=== PATIENT | female | born 1990 | race Caucasian/White ===

== ENCOUNTER 2017-02-18 13:06 | Emergency (ER) | payer OTHER ==
[2017-02-18 13:27] VITALS: BP 130/79; PULSE 105; TEMP 97.9; BMI 29.2
--- NOTE | 2017-02-18 13:32 | PDOC ---
History of Present Illness - General Chief Complaint: Sore Throat Stated Complaint: SORE THROAT Time Seen by Provider: 02/18/17 13:28 History Source: Patient Exam Limitations: Language Barrier (Intepreter #[id number] rylan) - History of Present Illness Initial Comments: CHIEF COMPLAINT: 26 y/o afebrile female with no significant PMH c/o sore throat since september (approximately 6 months ago). HISTORY OF PRESENT ILLNESS: The patient states it feels like something is stuck in her throat. She denies f/c, n/v/d, difficulty swallowing, and all other symptoms. She did not take any medications for her symptoms. Vital signs on arrival are notable for pulse of 105. REVIEW OF SYSTEMS: GENERAL/CONSTITUTIONAL: No fever/chills. No weakness. No weight change. HEAD, EYES, EARS, NOSE AND THROAT: No change in vision. No ear pain or discharge. +sore throat and foreign body sensation. CARDIOVASCULAR: No chest pain or shortness of breath. RESPIRATORY: No cough, wheezing, or hemoptysis. GASTROINTESTINAL: No abd pain, nausea, vomiting,diarrhea. GENITOURINARY: No dysuria, frequency, or change in urination. MUSCULOSKELETAL: No joint or muscle swelling or pain. No neck or back pain. SKIN: No rash or easy bruising. NEUROLOGIC: No headache, vertigo, loss of consciousness, or loss of sensation. PHYSICAL EXAM: GENERAL: The patient is awake, alert, and fully oriented, in no acute distress. She is well appearing, ambulatory, in NAD or obvious discomfort. HEAD: Normal with no signs of trauma. ENT: Pupils equal, round and reactive to light, extraocular movements intact, sclera anicteric, conjunctiva clear. Neck supple. No tonsilar erythema, edema or exudate. Airway patent. Normal swallow. LUNGS: Clear to auscultation bilaterally. Normal excursion. No respiratory distress or use of accessory muscles. CV: RRR, S1/S2, no MRG. Cap refill < 2 sec. ABDOMEN: Soft, non-distended, non-tender even to deep palpation, no hepatomegaly or splenomegaly, no masses. EXTREMITIES: Normal range of motion, no edema. NEUROLOGICAL: Normal speech, normal gait. CN II-XII grossly intact. PSYCH: Normal mood, normal affect. SKIN: Warm, dry, normal turgor, no rashes or lesions noted. Past History - Past Medical History Allergies/Adverse Reactions: Allergies Allergy/AdvReac Type Severity Reaction Status Date / Time No Known Allergies Allergy Verified 02/18/17 13:24 Home Medications: Ambulatory Orders No Home Medications 0 dose .ROUTE UTDICT 12/21/13 Asthma: No Cancer: No Cardiac Disorders: No Diabetes: No HTN: No Seizures: No Thyroid Disease: No Other medical history: DENIES. - Psycho/Social/Smoking Cessation Hx Suicidal Ideation: No Smoking History: Never smoked Have you smoked in the past 12 months: No Hx Alcohol Use: No Drug/Substance Use Hx: No Hx Substance Use Treatment: No *Physical Exam - Vital Signs Last Vital Signs Temp Pulse Resp BP Pulse Ox 97.9 F 105 H 19 130/79 96 02/18/17 13:24 02/18/17 13:24 02/18/17 13:24 02/18/17 13:24 02/18/17 13:24 Medical Decision Making - Medical Decision Making A/P: 26 y/o afebrile female with sore throat and foreign body sensation x 6 months. Instructed the patient she should follow up with ENT, Dr. Kaufman, to have endoscopy performed. In the meantime, suggested she take Motrin for pain and inflammation and gargle with warm salt water. Instructed her to return to the ER with any worsening or concerning symptoms. The patient verbalizes understanding of all instructions, has no further questions and is awaiting discharge. *DC/Admit/Observation/Transfer Diagnosis at time of Disposition: Sore throat, Foreign body sensation in throat - Discharge Dispostion Disposition: HOME Condition at time of disposition: Good - Referrals Referrals: Boone Kaufman MD [Staff Physician] - Call tomorrow - Patient Instructions Printed Discharge Instructions: Sore Throat Additional Instructions: Discharge Instructions: -Take Motrin for pain -Gargle with warm salt water -Call Dr. Kaufman tomorrow to schedule follow up appointment Print Language: SLOVAK
== END 2017-02-18 13:54 | disposition home or self-care (01) ==
LOC: JERFT 13:06
DX: R07.0 Pain in throat (principal); R09.89 Other specified symptoms and signs involving the circulatory and respiratory systems
CPT/HCPCS: 99281-25

== ENCOUNTER → 2018-10-21 | Emergency (ER) | payer OTHER ==
[~2018-10-21] MED LIST: KETOROLAC TROMETHAMINE 30 MG/1 ML VIAL IVPUSH ONE; KETOROLAC TROMETHAMINE 30 MG/1 ML VIAL ONE
[2018-10-21 12:33] VITALS: BP 121/55; PULSE 77; TEMP 98; BMI 31.4
--- NOTE | 2018-10-21 14:29 | PDOC ---
History of Present Illness - General Chief Complaint: Pain Stated Complaint: BREAST PAIN Time Seen by Provider: 10/21/18 12:54 History Source: Patient - History of Present Illness Timing/Duration: other Associated Symptoms: denies: fever/chills, malaise Past History - Past Medical History Allergies/Adverse Reactions: Allergies Allergy/AdvReac Type Severity Reaction Status Date / Time No Known Allergies Allergy Verified 10/21/18 12:30 Home Medications: Ambulatory Orders No Home Medications 0 dose .ROUTE UTDICT 12/21/13 Asthma: No Cancer: No Cardiac Disorders: No COPD: No Diabetes: No HTN: No Seizures: No Thyroid Disease: No - Suicide/Smoking/Psychosocial Hx Smoking History: Never smoked Have you smoked in the past 12 months: No Information on smoking cessation initiated: No Hx Alcohol Use: No Drug/Substance Use Hx: No Hx Substance Use Treatment: No Review of Systems - Review of Systems Constitutional: No: Chills, Fever, Malaise, Unexplained wgt Loss *Physical Exam - Vital Signs Last Vital Signs Temp Pulse Resp BP Pulse Ox 98 F 77 16 121/55 L 100 10/21/18 12:31 10/21/18 12:31 10/21/18 12:31 10/21/18 12:31 10/21/18 12:31 - Physical Exam General Appearance: Yes: Appropriately Dressed. No: Apparent Distress HEENT: positive: Normal Voice Neck: positive: Supple Respiratory/Chest: positive: Other (~4x4cm hard,fixed,tender mass to medial R breast, no overlying erythema or nipple changes or discharge, breasts symmetric with no axillary or cervical lymphadenopathy). negative: Respiratory Distress Integumentary: positive: Dry, Warm Neurologic: positive: Fully Oriented, Alert, Normal Mood/Affect Moderate Sedation - Procedure Monitoring Vital Signs: Procedure Monitoring Vital Signs Temperature 98 F 10/21/18 12:31 Pulse Rate 77 10/21/18 12:31 Respiratory Rate 16 10/21/18 12:31 Blood Pressure 121/55 L 10/21/18 12:31 O2 Sat by Pulse Oximetry (%) 100 10/21/18 12:31 ED Treatment Course - LABORATORY CBC & Chemistry Diagram: 10/21/18 15:30 10/21/18 15:30 Medical Decision Making - Medical Decision Making 10/21/18 14:24 27 yo F, no sig hx, here w/ persistent pain to right breast and over the past several days has felt a mass. No fever or chills. No personal history of breast disease and no family history of breast cancer. No unexplained weight loss see exam R/o breast abscess Pain control -labs -US 10/21/18 15:51 US read as a 5.8 cm band of increased echogenicity which may be infectious versus mass/tumor. Will discuss case with general surgery 10/21/18 16:[address] García who states he can see patient in the office tomorrow. ED scribe contacted staff in office who will contact patient at mobile number on record to arrange appointment. This was discussed with patient who was informed of how important it is for her to follow-up and get possible biopsy to rule out malignancy. *DC/Admit/Observation/Transfer Diagnosis at time of Disposition: Breast mass, right - Discharge Dispostion Disposition: HOME - Referrals - Patient Instructions Printed Discharge Instructions: DI for Breast Mass -- Uncertain Cause Additional Instructions: Hurtado ecografa de hoy mostr yesi masa de 5,6 cm. No est rosio hoy si hay yesi infeccin o un tumor. Es muy importante que elieser un seguimiento con el Dr. García de la ciruga general para un tratamiento adicional con yesi posible biopsia de la masa. Hemos discutido el zayra con el Dr. García y hurtado personal se comunicar con usted hoy al nmero registrado para concertar yesi ki para maana. Mientras tanto, jerri Li segn sea necesario para el dolor. Print Language: SURINAMESE - Post Discharge Activity Forms/Work/School Notes: Back to Work
[2018-10-21 15:59] LABS: BASO % 0.4 % (0-2.0); EOS % 1.9 % (0-4.5); HEMATOCRIT 37.2 % (32.4-45.2); HEMOGLOBIN 13.1 GM/dL (10.7-15.3); LYMPH % 25.7 % (8-40); MCH 31.6 pg (25.7-33.7); MCHC 35.2 g/dl (32.0-36.0); MEAN CELL VOLUME 89.8 fl (80-96); MEAN PLT VOLUME 7.8 fl (7.5-11.1); MONO % 5.1 % (3.8-10.2); NEUT % 66.9 % (42.8-82.8); PLATELET COUNT 283 K/MM3 (134-434); RBC 4.14 M/mm3 (3.60-5.2); RDW 12.6 % (11.6-15.6)
[2018-10-21 16:23] LABS: ALBUMIN 3.6 g/dl (3.4-5.0); ALK PHOS 132 U/L (45-117); ANION GAP 6 MMOL/L (8-16); BILIRUBIN,TOTAL 0.4 mg/dL (0.2-1); BLOOD UREA NITROGEN 10 mg/dL (7-18); CALCIUM 8.6 mg/dL (8.5-10.1); CHLORIDE 107 mmol/L (98-107); CO2 27 mmol/L (21-32); CREATININE 0.5 mg/dL (0.55-1.3); GLUCOSE,RANDOM 98 mg/dL (74-106); POTASSIUM 3.7 mmol/L (3.5-5.1); SGOT/AST 12 U/L (15-37); SGPT/ALT 26 U/L (13-61); SODIUM 139 mmol/L (136-145); TOT PROT 7.4 g/dl (6.4-8.2)
[2018-10-21 17:50] LABS: URINE APPEARANCE CLEAR; URINE BILIRUBIN NEGATIVE (<2.0 mg/dL); URINE COLOR YELLOW; URINE GLUCOSE (UA) NEGATIVE (NEGATIVE); URINE KETONE NEGATIVE (NEGATIVE); URINE LEUK ESTERASE NEGATIVE (NEGATIVE); URINE NITRITE NEGATIVE (NEGATIVE); URINE PROTEIN NEGATIVE (NEGATIVE); URINE UROBILINOGEN NEGATIVE mg/dL (0.2-1.0)
[2018-10-21 17:52] LABS: HCG,QUALITATIVE URINE Negative
== END | disposition home or self-care (01) ==
LOC: JER 12:07 → JERFT 12:07
PROC: 3E0333Z Introduction of Anti-inflammatory into Peripheral Vein, Percutaneous Approach (ICD-10-PCS; principal; 2018-10-21)
DX: N63.10 Unspecified lump in the right breast, unspecified quadrant (principal)
CPT/HCPCS: 36415; 76641-TC-RT; 80053; 81003; 84703; 85025; 96374; 99281-25

== ENCOUNTER → 2018-11-15 | Day surgery (SDC) | payer OTHER ==
--- NOTE | 2018-11-22 10:28 | PATH ---
Surgical Pathology Report Patient Name: TIFFANY BEE [facility]. Rec. #: [id number] /Age/Gender: 1990 (Age: 27) / F Account: [id number] Location: [place] [facility] Taken: 11/15/2018 Received: 11/15/2018 Reported: 11/22/2018 Physicians: MD Semaj Hutton M.D. Specimen(s) Received RIGHT BREAST 3:00 4FN CORE BX Clinical History Ultrasound findings: Suspicious Final Diagnosis Breast, right, 3:00, 4 cm fn, core biopsy: CYSTIC NEUTROPHILIC granulomatous mastitis. (See note). Note: The tissue cores are comprised of breast tissue showing lobulocentric granulomatous inflammation with mixed inflammatory infiltrate and microcystic foci within granulomas lined by/filled with neutrophils, with formation of small microabscesses. Gram stain (performed at [place], [place] : [id number]) demonstrates the presence of gram-positive bacilli/rods in association with the neutrophilic microabscesses. Cystic neutrophilic granulomatous mastitis is a rare inflammatory breast disease, affecting parous women of reproductive age, with growing evidence of association with corynebacterium (gram-positive bacilli) infection. Microbial culture may be useful in this setting, if clinically indicated. Myoepithelial immunohistochemical markers (SMM-HC and p63, performed at [facility]) demonstrate the presence of myoepithelial cells in the lesion. GMS and AFB stains (performed at [facility]) are negative for fungi and acid fast bacilli, respectively. Case discussed with Dr. Wicho García on 11/22/18. Electronically Signed Yvette Brock M.D. Gross Description Received in formalin labeled "right breast biopsy 3:00, 4 cmfn," is a 2.0 x 1.5 x 0.3 cm aggregate of multiple crow-yellow, irregular to cylindrical portions of fibroadipose tissue admixed with blood clot. The formalin is filtered and the specimen is entirely submitted in one cassette. Time to formalin fixation: 2 minutes Total formalin fixation time: Approximately 6 hours. /11/15/2018 saudi11/15/2018
== END | disposition home or self-care (01) ==
LOC: FRADUS-SUR 10:18
PROVIDERS: ATTEND Surgery
PROC: 0HBT3ZX Excision of Right Breast, Percutaneous Approach, Diagnostic (ICD-10-PCS; principal; 2018-11-15)
DX: N60.11 Diffuse cystic mastopathy of right breast (principal); N63.10 Unspecified lump in the right breast, unspecified quadrant
CPT/HCPCS: 19083; 87899; 88305-TC; 88312-TC; 88341-TC; 88342-TC; A4648

== ENCOUNTER 2018-12-09 08:03 | Inpatient (IN) | payer OTHER ==
--- NOTE | 2018-12-09 08:59 | PDOC ---
History of Present Illness - General Stated Complaint: BREAST SURGERY History Source: Patient Exam Limitations: No Limitations - History of Present Illness Initial Comments: 12/09/18 08:49 27 yo female no sig pmh, recent core biopsy right breast positive for cystic neutrophilic granulomatosis mastitis presents to the ED by the direction of Dr. García for removal of breast mass today. Pt has medicaid and requires ER visit prior to admission for surgery. Pt NPO for 12 hours. No current complaints Past History - Past Medical History Allergies/Adverse Reactions: Allergies Allergy/AdvReac Type Severity Reaction Status Date / Time No Known Allergies Allergy Verified 12/09/18 08:40 Home Medications: Ambulatory Orders No Home Medications 0 dose .ROUTE UTDICT 12/21/13 Asthma: No Cancer: No Cardiac Disorders: No COPD: No Diabetes: No HTN: No Seizures: No Thyroid Disease: No - Suicide/Smoking/Psychosocial Hx Smoking History: Never smoked Have you smoked in the past 12 months: No Information on smoking cessation initiated: No Hx Alcohol Use: No Drug/Substance Use Hx: No Hx Substance Use Treatment: No Review of Systems - Review of Systems Constitutional: No: Chills, Fever Respiratory: No: Shortness of Breath Cardiac (ROS): No: Chest Pain ABD/GI: No: Nausea, Vomiting Musculoskeletal: No: Back Pain Integumentary: Yes: Other (right breast mass with pain. No drainage) *Physical Exam - Vital Signs Last Vital Signs Temp Pulse Resp BP Pulse Ox 97.6 F 66 16 116/54 L 100 12/09/18 08:34 12/09/18 08:34 12/09/18 08:34 12/09/18 08:34 12/09/18 08:34 - Physical Exam General Appearance: Yes: Nourished, Appropriately Dressed. No: Apparent Distress HEENT: positive: EOMI Respiratory/Chest: positive: Lungs Clear Cardiovascular: positive: Regular Rhythm, Regular Rate Vascular Pulses: Dorsalis-Pedis (R): 4+, Doralis-Pedis (L): 4+ Gastrointestinal/Abdominal: positive: Flat, Soft. negative: Pulsatile Mass, Tenderness Integumentary: positive: Normal Color, Dry, Warm, Other (right breast cystic mass palpable with pain, no drainage from nipple or visible breast abnormality when compaired bilaterally) Neurologic: positive: Fully Oriented, Alert, Normal Mood/Affect, Normal Response Moderate Sedation - Procedure Monitoring Vital Signs: Procedure Monitoring Vital Signs Temperature 97.6 F 12/09/18 08:34 Pulse Rate 66 12/09/18 08:34 Respiratory Rate 16 12/09/18 08:34 Blood Pressure 116/54 L 12/09/18 08:34 O2 Sat by Pulse Oximetry (%) 100 12/09/18 08:34 Medical Decision Making - Medical Decision Making 12/09/18 09:19 Pt presents for surgical removal of R breast mass with Dr. García. Pt NPO for 12 hours Has no current complaints DR. García called, states pt will have surgery today and needs pre-op labs and admission through ED since she is a medicaid pt Pt understands plan today and is ready for admission *DC/Admit/Observation/Transfer Diagnosis at time of Disposition: Breast mass - Discharge Dispostion Condition at time of disposition: Good Decision to Admit order: Yes - Referrals - Patient Instructions - Post Discharge Activity
--- NOTE | 2018-12-09 09:04 | PDOC ---
Attending Attestation - Resident Resident Name: Howard Sanchez - ED Attending Attestation I have performed the following: I have examined & evaluated the patient, The case was reviewed & discussed with the resident, I agree w/resident's findings & plan, Exceptions are as noted - HPI HPI: 12/09/18 08:57 27 year old female c/ no pmh p/w surgery today. The patient has had a chronic R breast cyst that was recently biopsied. The biopsy demonstrated corynebacterium cyst. Since then, pt sent to ED for surgery today for right breast cyst removal. No fevers, chills, cough, vomiting, pain. - Physicial Exam PE: 12/09/18 09:05 GENERAL: Awake, alert, and fully oriented, in no acute distress HEAD: No signs of trauma EYES: PERRLA, EOMI, sclera anicteric, conjunctiva clear ENT: Auricles normal inspection, hearing grossly normal, nares patent, Moist mucosa NECK: Normal ROM, supple, LUNGS: Breath sounds equal, clear to auscultation bilaterally. No wheezes, and no crackles HEART: Regular rate and rhythm, normal S1 and S2, no murmurs, rubs or gallops EXTREMITIES: Normal range of motion, no edema. No clubbing or cyanosis. No cords, erythema, or tenderness NEUROLOGICAL: Cranial nerves II through XII grossly intact. Normal speech, normal gait - Medical Decision Making 12/09/18 09:05 Vital Signs Temp Pulse Resp BP Pulse Ox 97.6 F 66 16 116/54 L 100 12/09/18 08:34 12/09/18 08:34 12/09/18 08:34 12/09/18 08:34 12/09/18 08:34 Impression: Pt to be admitted for right breast cyst surgery. Dr. Sanchez spoke to Dr. García, who accepts pt to med/surg admission. Pre-op labs, ECG. Heart Score/ECG Review #1 ECG reviewed & interpreted by me at: 09:05 12/09/18 09:04 NSR 74, no std/samantha, normal axis, normal intervals, QTC 424 msec
[2018-12-09 09:25] LABS: BASO % 0.4 % (0-2.0); EOS % 1.6 % (0-4.5); HEMATOCRIT 36.5 % (32.4-45.2); LYMPH % 32.3 % (8-40); MCH 32.4 pg (25.7-33.7); MCHC 35.7 g/dl (32.0-36.0); MEAN PLT VOLUME 7.9 fl (7.5-11.1); MONO % 5.6 % (3.8-10.2); NEUT % 60.1 % (42.8-82.8); PLATELET COUNT 233 K/MM3 (134-434); RBC 4.02 M/mm3 (3.60-5.2); RDW 12.7 % (11.6-15.6); WHITE BLOOD COUNT 8.2 K/mm3 (4.0-10.0)
--- NOTE | 2018-12-09 09:48 | HP ---
HISTORY OF PRESENT ILLNESS Right breast mass since 10/26; patient presented to the [facility] ER in early 10/26 w / 1 week of a sudden onset of a right breast mass; she was subsequently seen in the office and USGBx. was done which was benign; mass persists and is painful and bothersome; patient is here for excisional bx. PCP:none ER course was notable for: (1)as above (2) (3) Recent travel:none Family History:none Social History:none Smoking:none Alcohol:none Drugs: none REVIEW OF SYSTEMS CONSTITUTIONAL: Absent: fever, chills, diaphoresis, generalized weakness, malaise, loss of appetite, weight change HEENT: Absent: rhinorrhea, nasal congestion, throat pain, throat swelling, difficulty swallowing, mouth swelling, ear pain, eye pain, visual changes CARDIOVASCULAR: Absent: chest pain, syncope, palpitations, irregular heart rate, lightheadedness , peripheral edema RESPIRATORY: Absent: cough, shortness of breath, dyspnea with exertion, orthopnea, wheezing, stridor, hemoptysis GASTROINTESTINAL: Absent: abdominal pain, abdominal distension, nausea, vomiting, diarrhea, constipation, melena, hematochezia GENITOURINARY: Absent: dysuria, frequency, urgency, hesitancy, hematuria, flank pain, genital pain MUSCULOSKELETAL: Absent: myalgia, arthralgia, joint swelling, back pain, neck pain SKIN: Absent: rash, itching, pallor HEMATOLOGIC/IMMUNOLOGIC: Absent: easy bleeding, easy bruising, lymphadenopathy, frequent infections ENDOCRINE: Absent: unexplained weight gain, unexplained weight loss, heat intolerance, cold intolerance NEUROLOGIC: Absent: headache, focal weakness or paresthesias, dizziness, unsteady gait, seizure, mental status changes, bladder or bowel incontinence PSYCHIATRIC: Absent: anxiety, depression, suicidal or homicidal ideation, hallucinations. PHYSICAL EXAMINATION: Vital Signs Temperature 97.6 F 12/09/18 08:34 Pulse Rate 66 12/09/18 08:34 Respiratory Rate 16 12/09/18 08:34 Blood Pressure 116/54 L 12/09/18 08:34 O2 Sat by Pulse Oximetry (%) 100 12/09/18 09:10 GENERAL: Awake, alert, and fully oriented, in no acute distress. HEAD: Normal with no signs of trauma. EYES: Pupils equal, round and reactive to light, extraocular movements intact, sclera anicteric, conjunctiva clear. No lid lag. EARS, NOSE, THROAT: Ears normal, nares patent, oropharynx clear without exudates. Moist mucous membranes. NECK: Normal range of motion, supple without lymphadenopathy, JVD, or masses. LUNGS: Breath sounds equal, clear to auscultation bilaterally. No wheezes, and no crackles. No accessory muscle use. HEART: Regular rate and rhythm, normal S1 and S2 without murmur, rub or gallop. ABDOMEN: Soft, nontender, not distended, normoactive bowel sounds, no guarding, no rebound, no masses. No hepatomegaly or splenomegaly. MUSCULOSKELETAL: Normal range of motion at all joints. No bony deformities or tenderness. No CVA tenderness. UPPER EXTREMITIES: 2+ pulses, warm, well-perfused. No cyanosis. No clubbing. No peripheral edema. LOWER EXTREMITIES: 2+ pulses, warm, well-perfused. No calf tenderness. No peripheral edema. NEUROLOGICAL: Cranial nerves II-XII intact. Normal speech. Normal gait. PSYCHIATRIC: Cooperative. Good eye contact. Appropriate mood and affect. SKIN: Warm, dry, normal turgor, no rashes or lesions noted, normal capillary refill. BREASTS: right mass; medial aspect; left normal CBC,CMP WBC 8.2 K/mm3 (4.0-10.0) 12/09/18 09:03 RBC 4.02 M/mm3 (3.60-5.2) 12/09/18 09:03 Hgb 13.0 GM/dL (10.7-15.3) 12/09/18 09:03 Hct 36.5 % (32.4-45.2) 12/09/18 09:03 MCV 91.0 fl (80-96) 12/09/18 09:03 MCH 32.4 pg (25.7-33.7) 12/09/18 09:03 MCHC 35.7 g/dl (32.0-36.0) 12/09/18 09:03 RDW 12.7 % (11.6-15.6) 12/09/18 09:03 Plt Count 233 K/MM3 (134-434) 12/09/18 09:03 MPV 7.9 fl (7.5-11.1) 12/09/18 09:03 Absolute Neuts (auto) 4.9 K/mm3 (1.5-8.0) 12/09/18 09:03 Neutrophils % 60.1 % (42.8-82.8) 12/09/18 09:03 Lymphocytes % 32.3 % (8-40) D 12/09/18 09:03 Monocytes % 5.6 % (3.8-10.2) 12/09/18 09:03 Eosinophils % 1.6 % (0-4.5) 12/09/18 09:03 Basophils % 0.4 % (0-2.0) 12/09/18 09:03 Nucleated RBC % 0 % (0-0) 12/09/18 09:03 ASSESSMENT/PLAN: Right breast mass for excisional bx. and tissue culture; r/b/t/a's d/w the patient and informed consent obtained. Wicho García MD FACS
[2018-12-09 09:56] LABS: INR 1.01 (0.83-1.09); PROTHROMBIN TIME (PATIENT) 11.9 SEC (9.7-13.0)
[2018-12-09 09:59] LABS: ACTIVATED PTT 29.6 SECONDS (25.2-36.5)
[2018-12-09 10:01] VITALS: BMI 29.7
[2018-12-09 10:10] LABS: ALBUMIN 3.5 g/dl (3.4-5.0); ALK PHOS 106 U/L (45-117); ANION GAP 8 MMOL/L (8-16); BILIRUBIN,TOTAL 0.4 mg/dL (0.2-1); BLOOD UREA NITROGEN 9 mg/dL (7-18); CALCIUM 8.5 mg/dL (8.5-10.1); CHLORIDE 104 mmol/L (98-107); CO2 25 mmol/L (21-32); CREATININE 0.5 mg/dL (0.55-1.3); GLUCOSE,RANDOM 102 mg/dL (74-106); POTASSIUM 3.8 mmol/L (3.5-5.1); SGOT/AST 15 U/L (15-37); SGPT/ALT 26 U/L (13-61); SODIUM 136 mmol/L (136-145); TOT PROT 6.7 g/dl (6.4-8.2)
[2018-12-09] MEDS ORDERED: LIDOCAINE HCL 1%, 10 MG/ML (20ML VIAL) ONE (11:13)
[2018-12-09] MEDS ORDERED: MIDAZOLAM HCL 2 MG/2 ML SINGLE DOSE VIAL ONE ×2 (12:51)
[2018-12-09] MEDS ORDERED: PROPOFOL 20 ML ONE (12:52)
[2018-12-09] MEDS ORDERED: SUCCINYLCHOLINE CHLORIDE 200 MG/10 ML VIAL ONE (12:52)
[2018-12-09] MEDS ORDERED: ceFAZolin SODIUM 1 GM VIAL IVPB ONE (13:15)
[2018-12-09] MEDS ORDERED: LIDOCAINE HCL 1%, 10 MG/ML (20ML VIAL) INF ONE ×2 (13:28)
[2018-12-09] MEDS ORDERED: BUPIVACAINE HCL/PF (5 MG/ML) 30 ML VIAL IJ ONE ×2 (13:28)
[2018-12-09] MEDS ORDERED: BENZOIN TINCTURE SWABSTICK TP ONE (13:42)
[2018-12-09] MEDS ORDERED: BENZOIN/ALOE VERA/STORAX/TOLU 58 ML BOTTLE TP ONE (13:54)
--- NOTE | 2018-12-09 13:58 | OP ---
Operative Note - Note: Operative Date: 12/09/18 Pre-Operative Diagnosis: right breast mass Operation: excision right breast mass Findings: right breast mass 3 o'clock ;0N. Post-Operative Diagnosis: Same as Pre-op Surgeon: Wicho García Picked Edge Sewing Machine Operator: Yvette Conroy Anesthesiologist/MOTION PICTURE OPERATOR: Judy Rea MD Anesthesia: General Specimens Removed: right breast mass for bx. and tissue culture Estimated Blood Loss (mls): 5
[2018-12-09] MEDS ORDERED: PROMETHAZINE HCL 25 MG/1 ML VIAL IVPUSH PRN (14:15)
[2018-12-09] MEDS ORDERED: oxyCODONE HCL 5 MG TABLET PO PRN (14:15)
[2018-12-09] MEDS ORDERED: LACTATED RINGERS SOLUTION 1,000 ML IV SCH (14:15)
[2018-12-09] MEDS ORDERED: ONDANSETRON 4 MG/2 ML VIAL IVPUSH PRN (14:15)
--- NOTE | 2018-12-09 15:53 | SURG ---
Surgery Operator Note Operator: Yvette Conroy PA-C Date of Service: 12/09/18 Diagnosis: right breast mass Procedure: excision right breast mass I was present for the entirety of the operative procedure. For further detail, please refer to operative report. Visit type - Case Type Case Type: ED Admission - Emergency Emergency Visit: Yes ED Registration Date: 12/09/18 Care time: The patient presented to the Emergency Department on the above date and was hospitalized for further evaluation of their emergent condition. - New patient This patient is new to me today: Yes Date on this admission: 12/09/18
[2018-12-09 16:22] VITALS: BP 112/62; PULSE 69; TEMP 97.6
[2018-12-09] MEDS ORDERED: oxyCODONE HCL 5 MG TABLET PO ONE (16:46)
--- NOTE | 2018-12-10 09:18 | OP ---
DATE OF OPERATION: 12/09/2018 PREOPERATIVE DIAGNOSIS: Right breast mass, pending final pathology. POSTOPERATIVE DIAGNOSIS: Right breast mass, pending final pathology. PROCEDURE: Excisional biopsy, right breast mass. SURGEON: Wicho García MD SOLE ASSESSOR: Yvette Conroy PA-C ANESTHESIA: General. OPERATIVE FINDINGS: There was a mass in the right breast at 3 o'clock access, 0 cm from the nipple areolar complex. It was previously biopsied and consistent with cystic neutrophilic granulomatous mastitis. The rest of the findings were unremarkable. DESCRIPTION OF PROCEDURE: The patient was placed on the operating table in the supine position, and after the induction of general anesthesia, the patients right breast was prepped with ChloraPrep and draped in a sterile fashion. A time-out was taken, and then, a circumareolar incision was made from the 1 to 4 o'clock position using a scalpel. This was carried down through the skin and subcutaneous tissue. The mass was identified and widely excised using electrocautery. It was passed off the operative field and sent to Pathology, and a portion of the mass sent for tissue culture, and some of the internal contents of the mass, which were liquid in nature, were sent for culture and sensitivity, as well. Hemostasis was secured with electrocautery, and the wound was copiously irrigated with sterile water. The incision was closed in layers with interrupted 3-0 Vicryl for the deep dermis and 4-0 Monocryl in the subcuticular continuous fashion to reapproximate the skin edges. Steri-Strips, fluffs, and dry sterile dressings were placed, and the procedure terminated at this point. The patient was aroused from general anesthesia and transferred to the post-anesthesia care unit in stable condition, awake and alert. ESTIMATED BLOOD LOSS: Minimal. DRAINS: None. SPECIMENS: Right breast mass to Pathology. I, Wicho García, was physically present in the operating room from the time the patient was placed on the operating table until she was transferred to the post-anesthesia care unit in my accompaniment. MD CARSON Galloway/[id number] MTDD
--- NOTE | 2018-12-11 16:24 | PATH ---
Surgical Pathology Report Patient Name: TIFFANY BEE [facility]. Rec. #: [id number] /Age/Gender: 1990 (Age: 27) / F Account: [id number] Location: [address] [place] [address]/[facility] Taken: 12/09/2018 Received: 12/09/2018 Reported: 12/11/2018 Physicians: Wicho García MD Specimen(s) Received RIGHT BREAST MASS Clinical History Right breast mass, cystic neutrophilic granulomatous mastitis right breast Final Diagnosis RIGHT BREAST MASS, EXCISION: BREAST TISSUE WITH CYSTIC NEUTROPHILIC GRANULOMATOUS MASTITIS. THE LESION PRESENT AT THE SURGICAL MARGIN. Comment: See prior biopsy specimen [id number] for GRAM, AFB, and GMS stain results. Electronically Signed Rafia Rudd M.D. Gross Description Received in formalin labeled "right breast mass," is a 3.7 x 3.2 x 2.5 cm irregular, unoriented portion of fibroadipose tissue. There is no needle localization wire present. There is no skin or nipple present. The specimen is inked blue and serially sectioned. Sectioning reveals a focal possible previous biopsy cavity surrounded by dense white fibrous tissue. No definitive mass is identified. Brace Maker sections including the majority of the fibrous tissue are sequentially submitted in 8 cassettes. Total formalin fixation time: Approximately 27 hours 12/10/201812/10/2018
--- NOTE | 2018-12-12 14:02 | EKG ---
Test Reason : Blood Pressure : / mmHG Vent. Rate : 074 BPM Atrial Rate : 074 BPM P-R Int : 186 ms QRS Dur : 078 ms QT Int : 382 ms P-R-T Axes : 029 052 022 degrees QTc Int : 424 ms NORMAL SINUS RHYTHM NORMAL ECG NO PREVIOUS ECGS AVAILABLE Confirmed by OPAL OLIVERA MD ([id number]) on 12/12/2018 2:02:20 PM Referred By: Confirmed By:OPAL OLIVERA MD
== END 2018-12-09 18:13 | disposition home or self-care (01) | DRG 363 ==
LOC: SUPCPDRO 08:03 → JER 08:03 → JERBED 08:59 → J6S 09:38
PROVIDERS: ADMIT Surgery; ATTEND Surgery
PROC: 0HBT0ZZ Excision of Right Breast, Open Approach (ICD-10-PCS; principal; 2018-12-09 14:30)
DX: N60.01 Solitary cyst of right breast (principal)
CPT/HCPCS: 36415; 80053; 84703; 85025; 85610; 85730; 86850; 86900; 86901; 87070; 87075; 87205; 88307-TC; 93005; 93010; 94760; 99283-25

== ENCOUNTER 2019-09-14 17:07 | Emergency (ER) | payer OTHER ==
[2019-09-14 17:12] VITALS: BP 112/58; PULSE 91; TEMP 98.1; BMI 29.2
[2019-09-14] MEDS ORDERED: IBUPROFEN 600 MG TABLET (FP) PO ONE ×2 (18:10→18:13)
--- NOTE | 2019-09-14 18:12 | PDOC ---
History of Present Illness - General Chief Complaint: Shortness of Breath Stated Complaint: DIFFICULTY BREATHING/ASTHMA SYMPTOMS Time Seen by Provider: 09/14/19 17:56 History Source: Patient Exam Limitations: No Limitations - History of Present Illness Initial Comments: 09/14/19 18:10 HISTORY OF PRESENT ILLNESS: 28-year-old woman denies medical history of presents to the emergency department with 2 days of subjective fevers, sore throat, moist productive cough and body aches. Patient has been taken Tylenol which is helping with her pain and fever. She denies any headache, blurry vision, dizziness, chest pain, shortness of breath, abdominal pain. No recent travel or sick contacts. PAST MEDICAL HISTORY: Denies past medical history SURGICAL HISTORY: Denies ALLERGIES: No known drug allergies REVIEW OF SYSTEMS General/Constitutional: +fever. Denies weakness, weight change. HEENT: Denies change in vision. Denies ear pain or discharge. +sore throat. Cardiovascular: Denies chest pain or shortness of breath. Respiratory: Moist productive cough. Denies wheezing, or hemoptysis. Gastrointestinal: Denies nausea, vomiting, diarrhea or constipation. Denies rectal bleeding. Genitourinary: Denies dysuria, frequency, or change in urination. Musculoskeletal: +myalgias. Denies neck or back pain. Skin and breasts: Denies rash or easy bruising. Neurologic: Denies headache, vertigo, loss of consciousness, or loss of sensation. Psychiatric: Denies depression or anxiety. Endocrine: Denies increased thirst. Denies abnormal weight change. Hematologic/Lymphatic: Denies anemia, easy bleeding, or history of blood clots. Allergic/Immunologic: Denies hives or skin allergy. Denies latex allergy. PHYSICAL EXAM General Appearance: Well-appearing, appropriately dressed. No apparent distress , no intoxication. HEENT: EOMI, PERRLA, normal voice, TMs retracted bilaterally. No conjunctival pallor. No photophobia, scleral icterus. Oropharynx erythematous without lesions or exudate. Cobblestoning noted in the posterior. No nasal discharge present. Neck: Supple. Trachea midline. No tenderness, rigidity, carotid bruit, stridor , or thyromegaly. Nontender anterior cervical lymphadenopathy present. Respiratory/Chest: Lungs CTAB. No shortness of breath, chest tenderness, respiratory distress, accessory muscle use. No crackles, rales, rhonchi, stridor , wheezing, dullness Cardiovascular: RRR. S1, S2. No JVD, murmur, bradycardia, tachycardia. Vascular Pulses: Dorsalis-Pedis (R): 2+, Dorsalis-Pedis (L): 2+ Gastrointestinal/Abdominal: Normal bowel sounds. Abdomen soft, non-distended. No tenderness or rebound tenderness. No organomegaly, pulsatile mass, guarding, hernia, hepatomegaly, splenomegaly. Musculoskeletal/Extremities: Normal inspection. FROM of all extremities, normal capillary refill. Pelvis Stable. No CVA tenderness. No tenderness to extremities, pedal edema, swelling, erythema or deformity. Integumentary: Appropriate color, dry, warm. 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 Fully oriented, alert. Appropriate mood/affect. Motor strength 5/5. No appreciable EOM palsy, facial droop or sensory deficit. Past History - Past Medical History Allergies/Adverse Reactions: Allergies Allergy/AdvReac Type Severity Reaction Status Date / Time No Known Allergies Allergy Verified 09/14/19 17:12 Home Medications: Ambulatory Orders Oseltamivir Phosphate [Tamiflu -] 75 mg PO BID #10 capsule 09/14/19 Asthma: No Cancer: No Cardiac Disorders: No COPD: No Diabetes: No HTN: No Seizures: No Thyroid Disease: No - Psycho Social/Smoking Cessation Hx Smoking History: Never smoked Have you smoked in the past 12 months: No Hx Alcohol Use: No Drug/Substance Use Hx: No Hx Substance Use Treatment: No *Physical Exam - Vital Signs Last Vital Signs Temp Pulse Resp BP Pulse Ox 98.1 F 91 H 18 112/58 L 96 09/14/19 17:10 09/14/19 17:10 09/14/19 17:10 09/14/19 17:10 09/14/19 17:10 Medical Decision Making - Medical Decision Making 09/14/19 18:11 A/P: 28-year-old woman with 2 days of upper respiratory symptoms As patient is inside influenza window I will do an influenza test to rule out flu. Patient took Tylenol approximately 1:00 this afternoon. Motrin 600 mg orally now Reassess 09/14/19 18:47 Influenza a positive. I will discharge patient home with instructions for supportive treatment and a prescription for Tamiflu. I discussed the physical exam findings, ancillary test results and final diagnoses with the patient. I answered all of the patient's questions. The patient was satisfied with the care received and felt comfortable with the discharge plan and treatment plan. The patient will call their primary care physician within 24 hours to arrange follow-up and will return to the Emergency Department with any new, persistent or worsening symptoms. Discharge - Discharge Information Problems reviewed: Yes Clinical Impression/Diagnosis: Influenza A Condition: Stable Disposition: HOME - Admission No - Additional Discharge Information Prescriptions: Oseltamivir Phosphate [Tamiflu -] 75 mg PO BID #10 capsule - Follow up/Referral - Patient Discharge Instructions Additional Instructions: Rest, drink lots of fluids: Teas, water, soups, Pedialyte Saltwater gargles Steamy showers/seem to face break up mucus Old-fashioned treatments help! Avoid contact with others until fevers and cough resolved as this is very contagious Lots of handwashing and good hygiene Continue [id number] medications for symptomatic relief Tylenol or Motrin for fever and pain Take all of Tamiflu as directed: 1 tab every 12 hours for 5 days Followup with private physician in one to 2 days as needed or if worsening Return to emergency department for worsened symptoms, fevers, dehydration Influenza takes between 5 and 7 days for resolution Do not participate in any activity, work, or school until fevers and cough are gone for at least one day arjun Pollackos lquidos: ts, agua, sopas, pedialyte Grgaras de agua salada Duchas de vapor / parecen enfrentar la mucosidad Los tratamientos pasados ??de moda ayudan! Evite el contacto con otras personas hasta que la fiebre y la tos se hayan resuelto, ya que esto es muy contagioso. Lavado de daniel y buena higiene. Continuar con los medicamentos de venta jorge a para el alivio sintomtico. Tylenol o Motrin para la fiebre y el dolor. [place] todo Tamiflu segn las indicaciones: 1 pestaa cada 12 horas dorcas 5 early. Seguimiento con un mdico privado en kelly o 2 early segn sea necesario o si empeora Regrese al departamento de emergencias por sntomas empeorados, fiebre, deshidratacin. La influenza tarda entre 5 y 7 early en resolverse No participe en ninguna actividad, trabajo o escuela hasta que la fiebre y la tos hayan desaparecido dorcas al menos un da. - Post Discharge Activity Work/Back to School Note: Back to Work
== END 2019-09-14 18:55 | disposition home or self-care (01) ==
LOC: JERFT 17:07
DX: J09.X2 Influenza due to identified novel influenza A virus with other respiratory manifestations (principal)
CPT/HCPCS: 87804; 99281-25